=== PATIENT | male | born 1965 | race Caucasian/White ===

== ENCOUNTER 2019-01-31 17:01 | Inpatient (IN) ==
[2019-01-31] MEDS ORDERED: ZOFRAN IV PRN (18:35)
[2019-01-31] MEDS ORDERED: TYLENOL PO PRN (18:35)
[2019-01-31] MEDS ORDERED: VANCOMYCIN IV PER PHARMACY MISC SCH (18:35)
--- NOTE | 2019-01-31 18:44 | HISTORY AND PHYSICAL ---
HISTORY OF PRESENT ILLNESS: This is a 53-year-old, who 3 or 4 days ago, started having some left lower quadrant pain. 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 He noticed it was hurting a little bit when he ran and it has become more intense. He feels like he has had some low-grade subjective fever. Denied any blood in his bowels and his bowels have been moving okay. No diarrhea. PAST MEDICAL HISTORY: Really pretty unremarkable. I think hypercholesterolemia. I think they watched his blood pressure. He has not really had any surgeries. He did have a peptic ulcer, I think Dr. Asif had done an EGD. He has not ever had a colonoscopy. He is followed by Joy Burt's office, [facility], and she got a CT scan, sigmoid diverticulitis with pericolic abscess appreciated. This was on a CT of the abdomen pelvis with and without contrast. ALLERGIES: No known drug allergies. FAMILY HISTORY: Really unremarkable. No colon problems or heart problems. SOCIAL HISTORY: Negative for alcohol or tobacco. No illicit drugs. 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 He is . REVIEW OF SYSTEMS: General: No weight gain or loss. No fever or chills until the last couple days. Subjective fever and some sweats at night. Respiratory: No increased work of breathing or dyspnea. Cardiovascular: No chest pain or tachy palpitation. Gastrointestinal/genitourinary: Left lower quadrant abdominal pain. Endocrinologic/hematologic: No significant history. PHYSICAL EXAMINATION: GENERAL: Well developed, well nourished, thin white male. VITAL SIGNS: Stable. HEENT: Pupils are equal and round. CVP less than 6 cm. LUNGS: Clear in all lung monsalve. CARDIOVASCULAR: Regular rhythm and rate without murmur or S3. ABDOMEN: Soft. There is tenderness in left lower quadrant. No rebound tenderness. No organomegaly. No pedal edema. NECK: Supple. No thyromegaly or adenopathy appreciated. No femoral adenopathy. SKIN: Without rashes. Oral and nasal mucosa with no mucosal lesions. ASSESSMENT/PLAN: Diverticulitis with small micro-pericolic abscess. We will admit him, put him on broad-spectrum antibiotics. We will use Zosyn and vancomycin. Dr. Correia, General Surgery, will follow. I am going to go ahead and feed him as he says he is hungry, and I am going to give a regular diet at this point and put him on some IV fluids. cc: Víctor Frausto MD
[2019-01-31] MEDS: NS 1,000 ML IV SCH (19:32)
[2019-01-31] MEDS: ZOSYN 3.375 GM in NS 50 ML IV SCH (19:33)
[2019-01-31 19:41] LABS: BASO# 0.05 X1000 (0.0-0.2); BASO% 0.4 % (0.0-0.8); EOS# 0.65 X1000 (0.0-0.7); EOS% 5.5 % (0.0-10.0); HEMATOCRIT 36.1 % (42.0-52.0); HEMOGLOBIN 11.9 g/dL (14.0-18.0); LYMPH# 1.68 X1000 (1.2-3.4); LYMPH% 14.3 % (20.5-51.1); MCH 31.3 PG (27-31); MONO# 1.33 X1000 (0.11-0.59); MONO% 11.3 % (1.7-9.3); NEUT# 8.07 X1000 (1.4-6.5); NEUT% 68.5 % (42.2-75.2); PLT 412 X1000 (130-400); RDW 12.9 % (11.5-14.5); WBC 11.78 X1000 (4.8-10.8)
[2019-01-31 20:00] LABS: AGAP 16; BUN 11 mg/dL (8-22); CALCIUM 9.4 mg/dL (8.8-10.2); CHLORIDE 98 mmol/L (98-107); COSMO 273; ESTIMATED GFR > 60; GLUCOSE 90 mg/dL (70-104); POTASSIUM 3.8 mmol/L (3.5-5.1); SODIUM 137 mmol/L (136-145); TCO2 23 mmol/L (25-35)
[2019-01-31 20:12] LABS: FREE T4 1.07 ng/dL (0.93-1.70); TSH 0.86 uIUmL (0.27-4.20)
[2019-01-31] MEDS ORDERED: VANCOMYCIN 2,000 MG in NS 500 ML IV ONE (21:00)
--- NOTE | 2019-01-31 23:59 | EKG Report ---
Test Performed on : 01/31/2019 9:10:18 PM Test Reason : Abd pain Blood Pressure : / mmHG Vent. Rate : 081 BPM Atrial Rate : 081 BPM P-R Int : 158 ms QRS Dur : 088 ms QT Int : 362 ms P-R-T Axes : 047 -01 038 degrees QTc Int : 420 ms Normal sinus rhythm. Normal ECG No previous ECGs available Confirmed by Brittni BOYER, Waldemar ([id number]) on 02/01/2019 8:21:10 AM
--- NOTE | 2019-02-01 01:56 | GENERAL SURGERY CONSULTATION ---
DATE: 01/31/2019 CHIEF COMPLAINT: Abdominal pain. REASON FOR CONSULTATION: Perforated diverticular abscess. HISTORY OF PRESENT ILLNESS: This is a 53-year-old healthy gentleman who has had several-day history of lower abdominal discomfort. He has otherwise been going about his usual activities, he went to work today, picked his daughter. He went to his primary doctor, who ordered a CT scan, this is Dr. Burt, and the CT scan showed diverticulitis with a diverticular abscess. He was directly admitted to the hospitalist for ongoing management. He says last week he ate a lot of peanuts. He is vegan, he eats a pretty high fiber diet anyway. Never had a colonoscopy but denies any constipation. He has regular bowel movements 3 times a day, no bleeding; but, he began feeling poorly over the weekend and came to his primary doctor, where a CT scan was obtained. MEDICAL HISTORY: Negative. SURGICAL HISTORY: He has had endoscopic treatment of a bleeding ulcer, but otherwise no abdominal operations. SOCIAL HISTORY: He does not smoke. She does not drink. 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 FAMILY HISTORY: Negative for colorectal cancer. REVIEW OF SYSTEMS: Ten-point review of systems negative other than what is mentioned in HPI. PHYSICAL EXAMINATION: Vital signs: On exam, he is afebrile. His pulse is in the 80s, blood pressure 157/91. General: He is alert, in no acute distress. HEENT: No scleral icterus. No cervical mass. Cardiovascular: Normal rate. Pulmonary: No increased work of breathing. Abdomen: Soft. He is tender in the lower abdomen, but no ted peritonitis. Integument: Warm, dry. Psychiatric: Appropriate affect. Neurologic: No gross deficits. Peripheral vascular: No lower extremity edema. LABORATORY DATA: White count 11, hematocrit 36, platelets 412,000. Creatinine is 1.0. I reviewed the CT scan. ASSESSMENT AND PLAN: A 53-year-old gentleman with diverticular abscess. I have recommended bowel rest and IV antibiotics. We will continue to follow over the next couple days. Given how benign he appears currently, I suspect that this will improve with nonoperative management. However, we did discuss possibility of sigmoid colectomy and the role that colostomy plays in the management of acute diverticulitis. He understands all this, consents. He will also need follow-up outpatient CT scan after this is resolved in 6 to 8 weeks. Agree with antibiotics as current. We will continue to follow along but no plans for urgent intervention. I would keep him on just clear liquid sips only. cc: Liz Correia MD
[2019-02-01] MEDS: ZOSYN 3.375 GM in NS 50 ML IV SCH ×4 (02:12→19:56)
[2019-02-01 06:49] LABS: BASO# 0.03 X1000 (0.0-0.2); BASO% 0.3 % (0.0-0.8); EOS# 0.67 X1000 (0.0-0.7); EOS% 6.2 % (0.0-10.0); HEMATOCRIT 36.5 % (42.0-52.0); IMM GRAN# 0.09 X1000 (0.0-0.04); IMM GRAN% 0.8 % (0.0-0.5); MCH 30.9 PG (27-31); MCHC 32.9 g/dL (33-37); MCV 94.1 FL (81-99); MONO# 1.06 X1000 (0.11-0.59); MONO% 9.8 % (1.7-9.3); MPV 9.8 FL (7.4-10.4); NEUT# 7.56 X1000 (1.4-6.5); NEUT% 69.9 % (42.2-75.2); PLT 388 X1000 (130-400); RBC 3.88 XMIL (4.7-6.1); RDW 12.5 % (11.5-14.5); WBC 10.81 X1000 (4.8-10.8)
[2019-02-01 08:09] LABS: AGAP 13; ALB/GLOB RATIO 1.2; ALBUMIN 3.4 g/dL (3.5-5.0); ALKALINE PHOSPHATASE 73 U/L (32-122); BUN 8 mg/dL (8-22); CALCIUM 8.8 mg/dL (8.8-10.2); CHLORIDE 102 mmol/L (98-107); COSMO 276; CREATININE 0.8 mg/dL (0.7-1.2); ESTIMATED GFR > 60; GLUCOSE 94 mg/dL (70-104); GOT 11 U/L (10-34); GPT 13 U/L (10-44); SODIUM 139 mmol/L (136-145); TCO2 24 mmol/L (25-35); TOTAL BILIRUBIN 0.48 mg/dL (0.20-1.00); TOTAL PROTEIN 6.2 g/dL (6.3-8.3)
--- NOTE | 2019-02-01 08:38 | PROGRESS NOTE ---
DATE: 02/01/2019 SUBJECTIVE: Mr. Gong is sitting up in a chair. He does feel a little bit better. He said that Dr. Correia did not want him to eat and so he has not eating anything. IV in place. OBJECTIVE: Vital signs: Temperature 98.7 degrees, afebrile, pulse 84, respirations 16, blood pressure 137/86. HEENT: Pupils are equal and round. Lungs: Clear in all lung monsalve. Cardiovascular: Regular rhythm and rate without murmur or S3. Abdomen: Soft. Tenderness in the left lower quadrant. Positive bowel sounds. Extremities: Without edema. REVIEW OF LABS: White count 81623, hematocrit is 36, platelet count 388,000. Sodium 139, potassium 4.0, chloride 102, BUN 8, creatinine 0.8, calcium 8.8. Albumin is 3.4. Thyroid T4 is 1.07, TSH is 0.86. ASSESSMENT AND PLAN: Diverticulitis with microabscesses, pericolonic. We are going to continue bowel rest and IV antibiotics. Suspect he will improve nonoperatively. REVIEW OF HIS ORDERS: He is getting normal saline 75 mL an hour, vancomycin 1500 mg IV q.12, and Zosyn 3.375 g IV q.6 hours. cc: Víctor Frausto MD
[2019-02-01] MEDS: VANCOMYCIN 1,500 MG in NS 250 ML IV SCH ×2 (08:55→21:14)
[2019-02-01] MEDS: NS 1,000 ML IV SCH (15:54)
--- NOTE | 2019-02-01 19:57 | GENERAL SURGERY PROGRESS NOTE ---
DATE: 02/01/2019 SUBJECTIVE: He feels much better this morning. No fevers documented overnight. His abdominal pain is much improved. OBJECTIVE: General: On exam, he is alert. Cardiovascular: No tachycardia. Abdomen: Soft, nontender, nondistended. Integumentary: Skin was warm and dry. LABS: White count down to 10, hematocrit 36, creatinine 0.8. ASSESSMENT AND PLAN: A 53-year-old gentleman with diverticular abscess, 2 small drained percutaneously, and clinically he seems to be improving. He will need most likely outpatient IV antibiotics given the size of the abscess, but I do think he will avoid operation at least in the acute setting. We will follow him along and discuss the plan with the patient. cc: Liz Correia MD
[2019-02-02] MEDS: ZOSYN 3.375 GM in NS 50 ML IV SCH ×2 (02:35→08:37)
[2019-02-02] MEDS: NS 1,000 ML IV SCH ×3 (09:49→23:41)
[2019-02-02] MEDS: VANCOMYCIN 1,500 MG in NS 250 ML IV SCH (09:49)
--- NOTE | 2019-02-02 13:28 | PROGRESS NOTE ---
DATE: 02/02/2019 SUBJECTIVE: Mr. Gong feels better, less tenderness, less pain in the left lower quadrant. OBJECTIVE: Vital Signs: Temperature is 97.8 degrees, pulse 77, respirations 16, blood pressure 133/82. Eyes: Pupils are equal and round. Lungs: Clear in all lung monsalve. Cardiovascular exam: Regular rhythm and rate without murmur or S3. Abdomen: Abdomen is soft. Mild tenderness in the left lower quadrant. : Urine output was 2000 mL. ASSESSMENT AND PLAN: Diverticulitis with small microabscesses pericolonic. Continue intravenous antibiotics. Seems to be improving and appears he may be able to avoid surgery. Continue his normal saline at 75 mL an hour. cc: Víctor Frausto MD
[2019-02-02] MEDS ORDERED: INVANZ 1 GM/NS 1 GM/50 ML IVPB IV SCH (13:45)
[2019-02-02 14:38] LABS: INR 1.21; PROTIME 15.5 Seconds (11.0-16.0)
[2019-02-02] MEDS ORDERED: NS 250 ML ONE (15:06)
--- NOTE | 2019-02-02 19:03 | INFECTIOUS DISEASE CONSULT REP ---
DATE: 02/02/2019 CONCLUSION: The patient has perforated diverticulitis with a pericolonic abscess. The patient has started to have diarrhea. I am concerned that he may have Clostridium difficile diarrhea. RECOMMENDATIONS: I have changed the patient from vancomycin and Zosyn to ertapenem. Some of the side effects of the antibiotic including rash, diarrhea and seizures, have been explained to the patient who agrees with treatment. The plan for the patient is to have a PICC installed and send the patient home on home IV antibiotic, namely ertapenem. The patient's abscess has been drained percutaneously. The patient approximately a week ago had the onset of abdominal pain and fever. He has had decrease passing of stool. He is also having anorexia and in the past 2 days has had some low back pain. Also the patient has had diarrhea. Lab studies show a CBC with a white count of 10,810, hemoglobin 12, platelet count 388,000. Creatinine is 0.8. GFR is greater than 60. Liver function tests are normal. Blood cultures are negative. I have ordered a stool for Clostridium difficile toxin and antigen. PAST MEDICAL HISTORY/REVIEW OF SYSTEMS: Eyes and ears: His vision and hearing are good. Neck: No stiffness. Respiratory: No cough or shortness of breath. Cardiac: No chest pain or palpitations. GI: See present illness. Genitourinary: No dysuria or flank pain. Neurologic: No seizures. No loss of motor or sensory function. Integument: No rashes. PREVIOUS HOSPITALIZATIONS AND OPERATIONS: Patient has had a vasectomy. He was admitted to the hospital with a bleeding peptic ulcer. He has had a procedure for his hiatal hernia to stretch the hernia. MEDICAL DISEASES: Positive for hypertension, hiatal hernia and peptic ulcer disease. INFECTIOUS DISEASE HISTORY: Negative for pneumonia and UTI. FAMILY HISTORY: Positive for hypertension, myocardial infarction, and cancer. SOCIAL HISTORY: [place] . He has dogs, a cat and chickens for pets. 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 He does not smoke cigarettes. He occasionally drinks alcoholic beverages. He does not abuse drugs. Home medications are Norvasc and losartan. PHYSICAL EXAMINATION: Vital Signs: Temperature is 97.8 degrees, pulse 77, respirations 16, blood pressure 133/82, the patient weighs 172 pounds. General: This is a healthy- appearing, middle- aged male. He is in no acute distress. Head/eyes/ears/nose/throat: He can hear my spoken words and see near objects. He does not have any white coating on his tongue. Neck: No stiffness. Lungs: Clear to auscultation. Cardiovascular: Regular heart rate. Abdomen: Soft and not tender except for slight tenderness in the left lower quadrant. Neurologic: The patient is alert. He can move his extremities. There is no tremor. His sensations intact to touch. His memory as regarding his medical history is intact. Integument: No rash. I already put in a consult for a PICC to be put in the patient and also I have ordered a pro time. I have requested that the patient have a return appointment in my office in 2 weeks. Thank you for the consult . cc: Moe Arrieta MD MTDD
--- NOTE | 2019-02-02 22:00 | GENERAL SURGERY PROGRESS NOTE ---
DATE: 02/02/2019 SUBJECTIVE: He is doing very well. His pain is for the most part resolved. He is hungry. He wants to go home. PHYSICAL EXAMINATION: He is afebrile. Pulse 77, blood pressure 133/82.General: He is alert. Cardiovascular: Normal rate. Pulmonary: No increased work of breathing. Abdomen: Soft, nontender, nondistended. LABORATORY DATA: I reviewed his labs. His white count was 10 yesterday and his creatinine 0.8. ASSESSMENT AND PLAN: This is a 53-year-old gentleman with a diverticular abscess. Clinically he is doing very well with normalization of his white count, no fevers. I have recommended IV antibiotics as treatment of his intra-abdominal abscess. We have asked Dr. Arrieta to see him. I have also asked for a PICC line and outpatient Zosyn. 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 Otherwise, I will see him in a week in my office to monitor going forward. Dr. Jimenez is online marketing strategist this weekend. He is covering my patients. cc: Liz Correia MD
[2019-02-03 07:44] VITALS: BP 159/92
--- NOTE | 2019-02-03 09:41 | DISCHARGE SUMMARY ---
ADMISSION DATE: 01/31/2019 DISCHARGE DATE: 02/03/2019 HOSPITAL COURSE: His doctor follows by [facility]. This is a 53-year-old with 3 or 4-day history, who presented on 01/31/2019 having some left lower quadrant pain. 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 He also states he has a vegan diet and the pain has become more intense in the left lower quadrant. Found to have diverticulitis with a couple micro pericolic abscesses treated with antibiotics. He did clinically seem to improve, and felt that he could go home. We did send off stools as he has had a little bit of loose stool. Clostridium difficile toxin was negative and Clostridium difficile antigen was negative. So, he is going to be set up to receive Zosyn and ertapenem. Some side of the side effects including rash, diarrhea, seizures, have been explained to the patient. They are planning on IV treatment, and I believe he will follow up with Dr. Correia in [address] Arrieta will see him back in 2 weeks. OTHER DISCHARGE MEDICATIONS: He is on his Norvasc 2.5 mg q.p.m., and he takes losartan 100 mg every a.m., and he could he can go back on those. cc: Víctor Frausto MD
--- NOTE | 2019-02-03 13:44 | PROGRESS NOTE ---
DATE: 02/03/2019 Zac Gogn is ambulating in the halls, he is a 53-year-old white male hospitalized with sigmoid diverticulitis. He has a left-sided PICC line in place in the plan is to discharge him home on 2 weeks worth of IV antibiotics. Dr. Víctor Frausto is working on that today. His heart rate 68, blood pressure 159/92, O2 saturation 100%. He is afebrile. He is receiving vancomycin and Zosyn. Dr. Correia has seen him from a surgical standpoint. He will need to follow up with Dr. Correia after completion of his IV antibiotics. His heart rate 68, blood pressure 159/92, O2 saturation 100%. He is afebrile. cc: Sabrina Jimenez MD
== END 2019-02-03 10:23 | disposition home health service (06) | DRG 392 ==
LOC: DIRADM 17:01 → 4N 18:07
PROVIDERS: ATTEND Emergency Medicine